=== PATIENT | female | born 1975 | race Caucasian/White ===

== ENCOUNTER 2018-12-06 10:19 | Emergency (ER) | payer OTHER ==
[~2018-12-06] VITALS: Ht 165.1 cm; Wt 71.6 kg
[~2018-12-06 10:19] MED LIST: CEPH-443 PO; PRE NATAL VIT
[2018-12-06 10:27] VITALS: BP 132/89; PULSE 83; RESP 18; Ht 165.1 cm; Wt 71.6 kg
== END 2018-12-06 11:37 | disposition home or self-care (01) ==
LOC: FTE 10:19
DX: N30.01 Acute cystitis with hematuria (principal)
CPT/HCPCS: 81001; 81025; Z7502; 81003; 99283